=== PATIENT | female | born 1945 | race Caucasian/White ===

== ENCOUNTER 2023-12-27 11:54 | Outpatient (CLI) | payer MEDICARE, SELFPAY ==
--- NOTE | ~2023-12-27 | XR_ITS ---
3 VIEWS LUMBAR SPINE Ordering provider: Narinder Rooney History: . RT SIDE SCIATICA, RADIATING DOWN LEG . Comparison: None. FINDINGS: VERTEBRAL BODIES: No visible fracture or subluxation. Degenerative changes of the spine. DISK SPACES: Degenerative disc disease at the level of L3-L4, L4-L5 and L5-S1. Multilevel facet joint disease. SOFT TISSUES: Aortic calcification. Possibility of stone in the left paraspinal area cannot be excluded. IMPRESSION: No acute osseous abnormality lumbar spine. Reviewed, dictated and finalized at location A.
== END 2023-12-27 11:55 | disposition home or self-care (01) ==
DX: M54.31 Sciatica, right side (principal)
CPT/HCPCS: 72110